=== PATIENT | male | born 1930 | race Caucasian/White ===

== ENCOUNTER 2017-04-05 18:40 | Emergency (ER) | payer OTHER ==
[~2017-04-05] VITALS: Ht 165.1 cm; Wt 71.5 kg
[2017-04-05 19:17] VITALS: Ht 165.1 cm; Wt 71.5 kg
[2017-04-05] MEDS ORDERED: SOD CHLORIDE 0.9% 500 ML IV STA (22:27)
[2017-04-05 23:36] LABS: ABNORMAL IP MESSAGE 1; HEMATOCRIT 39.3 % (42.0-52.0); HEMOGLOBIN 13.5 g/dl (14.0-18.0); MEAN CORPUSCULAR HEMOGLOBIN 28.9 pg (29.0-33.0); MEAN CORPUSCULAR HGB CONC 34.4 g/dl (32.0-37.0); MEAN CORPUSCULAR VOLUME 84.2 fl (82.0-101.0); MEAN PLATELET VOLUME 9.7 fl (7.4-10.4); PLATELET COUNT 261 10^3/UL (140-415); POSITIVE DIFF @See below; RED BLOOD COUNT 4.67 10^6/ul (4.70-6.10); RED CELL DISTRIBUTION WIDTH 14.5 % (11.5-14.5); WHITE BLOOD COUNT 27.8 10^3/ul (4.8-10.8)
--- NOTE | 2017-04-05 23:42 | RADRPT ---
PROCEDURE: CT abdomen and pelvis without contrast. CLINICAL INDICATION: Abdominal pain TECHNIQUE: CT scan of the abdomen and pelvis without contrast was performed on a multislice CT [facility] utilizing axial imaging from the lung bases through the pubis symphysis. The patient was scann ed without intravenous contrast. Sagittal and coronal reformatted images were made. The CTDIvol is 11.62 mGy and the DLP is 632.52 mGycm. One of the following 3 dose reduction techniques were used during this CT examination: automated exp osure control; adjustment of the mA and /or kV according to patient size; or use of iterative recons truction technique. COMPARISON: None available FINDINGS: The lung bases are remarkable for bibasilar discoid atelectasis. Mild cardiomegaly is present. Mil d vascular calcifications are present of the thoracic aorta and the coronary arteries. Minimal 4 mm pericardial thickening or effusion is present . The visualized liver is diffusely fatty infiltrated. The spleen, pancreas, gallbladder, and bilater al adrenal glands are normal. The right kidney is absent. The left kidney demonstrates a large lef t mid pole renal cortical cysts measuring 3.7 cm AP by 4.2 cm in transverse dimensions. The visualized aorta demonstrates vascular calcifications without aneurysmal dilatation. The visualized bowel is nonobstructive. An abundance of stool is noted and correlate with constipat ion. No evidence for diverticulosis, diverticulitis or appendicitis is present. The visualized pelvis demonstrates an incompletely distended urinary bladder. The prostate gland is normal in size with mild prostatic calcifications. Bilateral fatty inguinal hernias are noted with out evidence for bowel herniation. The right measures 2.3 cm and the left measures 2.5 cm. No pelvic mass, lymphadenopathy, or free fluid is seen. There is no evidence of free air. No aneur ysmal dilatation of the aorta is evident. The surrounding osseous structures are remarkable for generalized osteopenia. Degenerative changes are noted of the bilateral sacroiliac joints and degenerative spondylosis is present of the spine. Severe vacuum disk phenomenon is noted at the L3-4 through L5-S1 levels and the T11-12 levels . IMPRESSION: 1. No evidence for acute intra-abdominal or pelvic pathology. 2. Bibasilar discoid atelectasis 3. Mild cardiomegaly , mild pericardial effusion and pericardial thickening and atherosclerotic vas cular disease 4. Left mid pole renal cortical cyst 3.7 cm AP per 4.2 cm transverse dimension 5. Absent right kidney 6. Abundance of stool and correlate with constipation. 7. Bilateral fatty inguinal hernias 8. Degenerative changes of the imaged spine and bilateral sacroiliac joints. RPTAT: H D C .Suha Lang MD, Date Time Electronically viewed and signed by .Suha Lang MD, on 04/05/2017 23:41 .C/
[2017-04-05 23:53] LABS: ALBUMIN 4.3 g/dl (3.3-4.9); ALBUMIN/GLOBULIN RATIO 1.19; BILIRUBIN,INDIRECT 0.4 mg/dl (0-1.1); BILIRUBIN,TOTAL 0.4 mg/dl (0.2-1.3); CALCIUM 9.9 mg/dl (8.4-10.2); CREATININE 1.31 mg/dl (0.61-1.24); POTASSIUM 4.5 mmol/L (3.5-5.1); TOTAL PROTEIN 7.9 g/dl (6.1-8.1)
[2017-04-06 00:07] LABS: LYMPHOCYTES # 1.7 10^3/ul (0.8-2.9); MONOCYTE # 2.2 10^3/ul (0.3-0.9); MONOCYTES % (M) 8 % (0-11)
[2017-04-06] MEDS ORDERED: LEVO88TA3 PO (01:27)
[2017-04-06] MEDS ORDERED: IBUP-1542 PO (01:27)
[2017-04-06] MEDS ORDERED: LEVO500T10 PO (01:27)
[2017-04-06] MEDS ORDERED: CHOL100062 PO (01:27)
[2017-04-06] MEDS ORDERED: ATEN-51 PO (01:27)
[2017-04-06] MEDS ORDERED: CEPH500C PO (01:27)
[2017-04-06] MEDS ORDERED: MULT-105 PO (01:27)
[2017-04-06] MEDS ORDERED: VITA400C15 PO (01:27)
[2017-04-06] MEDS ORDERED: TRAM-40 PO (01:27)
[2017-04-06] MEDS ORDERED: LOSA100T7 PO (01:27)
[2017-04-06 01:29] VITALS: RESP 18
[2017-04-06] MEDS ORDERED: CEFEPIME 2GM/50 ML (PMX) 50 ML IVPB STA (02:16)
[2017-04-06] MEDS ORDERED: SODIUM CHLORIDE 0.9% 1L BAG IV* STA (02:16)
[2017-04-06] MEDS ORDERED: VANCOMYCIN 1 GM (PMX) 250 ML IVPB ONE (02:30)
[2017-04-06 03:00] LABS: ADD UMIC YES; UR ASCORBIC ACID NEGATIVE (NEGATIVE); UR BILIRUBIN (Dip) NEGATIVE (NEGATIVE); UR BLOOD (Dip) 2+ mg/dL (NEGATIVE); UR CLARITY CLEAR (CLEAR); UR COLOR YELLOW (YELLOW); UR GLUCOSE (Dip) NEGATIVE (NEGATIVE); UR KETONES (Dip) NEGATIVE (NEGATIVE); UR LEUKOCYTE ESTERASE (Dip) NEGATIVE Leu/ul (NEGATIVE); UR NITRITE (Dip) NEGATIVE (NEGATIVE); UR RBC 3 /HPF (0-5); UR SPECIFIC GRAVITY (Dip) 1.012 (1.003-1.030); UR TOTAL PROTEIN (Dip) NEGATIVE (NEGATIVE); UR UROBILINOGEN (Dip) NEGATIVE (NEGATIVE)
[2017-04-06] MEDS ORDERED: hydrALAzine 20 MG INJ IV ONE (04:00)
--- NOTE | 2017-04-06 04:48 | RADRPT ---
PROCEDURE: CHEST - 1 VIEW CLINICAL INDICATION: 86-year-old male with chest pain. TECHNIQUE: A single frontal AP semi-erect portable view of the chest was performed. The images we re reviewed on a PACS workstation. COMPARISON: CT abdomen/pelvis March 28, 2017. FINDINGS: The cardiomediastinal silhouette is mildly enlarged. There is minimal bibasilar subsegmental atelec tasis. There is no evidence for an infiltrate. There is no evidence for congestive heart failure. T here is no evidence for pneumothorax. The osseous structures are intact. IMPRESSION: 1. Mild cardiomegaly. 2. Minimal bibasilar subsegmental atelectasis. .Juan C Feliz MD, Date Time Electronically viewed and signed by .Juan C Feliz MD, on 04/06/2017 04:48 .M/
[2017-04-06 06:06] VITALS: BP 145/87; PULSE 93
--- NOTE | 2017-05-30 23:03 | ERD ---
ER Documentation Chief Complaint Chief Complaint GENERALIZED WEAKNESS, FOUND OUTSIDE HOME FOR UNK LENGTH OF TIME. HPI 86-year-old male generalized weakness found to discomfort on the length of time. Patient himself is unable to relate any relate any relevant history but is alert. Patient not oriented. ROS All systems reviewed and are negative except as per history of present illness. Medications Home Meds Reported Medications Multivitamin with Minerals (Multivitamins with Minerals) 1 Each Tablet, 1 EACH PO, TAB 04/06/17 Vitamin E* (Vitamin E*) 400 Unit Capsule, 400 UNIT PO DAILY, CAP 04/06/17 Cholecalciferol* (Vitamin D3*) 1,000 Unit Tablet, 1000 UNIT PO DAILY, TAB 04/06/17 Levothyroxine Sodium* (Levothyroxine Sodium*) 88 Mcg Tablet, 88 MCG PO BEFORE BREAKFAST, #30 TAB TK 1 TABLET BY MOUTH DAILY 30 MINUTES BEFORE BREAKFAST 04/06/17 Losartan Potassium* (Losartan Potassium*) 100 Mg Tablet, 100 MG PO DAILY, TAB 04/06/17 Atenolol* (Atenolol*) 25 Mg Tablet, 25 MG PO DAILY, #30 TAB 04/06/17 Ibuprofen* (Ibuprofen*) 600 Mg Tablet, 600 MG PO Q8 for 5 Days, TAB TK 1 TABLET BY MOUTHEVERY 8HOURS WITH FOODFOR 5 DAYS 04/06/17 Tramadol Hcl* (Ultram*) 50 Mg Tablet, 50 MG PO Q6H Y for PAIN, TAB TK ONE-HALF TABLET TO 1 TABLET BY MOUTH EVERY 4 TO 6 HOURS NEEDED, DO NOT EXCEED 8 TABLETS IN 24 HRS. 04/06/17 Cephalexin* (Cephalexin*) 500 Mg Capsule, 500 MG PO TID for 7 Days, #28 CAP 04/06/17 Levofloxacin* (Levofloxacin*) 500 Mg Tablet, 500 MG PO DAILY, TAB 04/06/17 Allergies Allergies: Coded Allergies: No Known Allergy (Unverified , 04/06/17) PMhx/Soc History of Surgery: Yes Anesthesia Reaction: No Hx Neurological Disorder: No Hx Respiratory Disorders: No Hx Cardiac Disorders: Yes (htn) Hx Psychiatric Problems: No Hx Miscellaneous Medical Probl: Yes (hypothyroidism) Hx Alcohol Use: No Hx Substance Use: No Hx Tobacco Use: No Smoking Status: Never smoker Physical Exam Physical Exam Const: [] Head: Atraumatic Eyes: Normal Conjunctiva ENT: Normal External Ears, Nose and Mouth. Neck: Full range of motion..~ No meningismus. Resp: Clear to auscultation bilaterally Cardio: Regular rate and rhythm, no murmurs Abd: Soft, non tender, non distended. Normal bowel sounds Skin: No petechiae or rashes Back: No midline or flank tenderness Ext: No cyanosis, or edema Neur: Awake and alert Psych: Normal Mood and Affect Results 24 hrs Laboratory Tests Test 04/05/17 23:10 04/06/17 02:20 04/06/17 05:48 White Blood Count 27.810^3/ul Red Blood Count 4.6710^6/ul Hemoglobin 13.5g/dl Hematocrit 39.3% Mean Corpuscular Volume 84.2fl Mean Corpuscular Hemoglobin 28.9pg Mean Corpuscular Hemoglobin Concent 34.4g/dl Red Cell Distribution Width 14.5% Platelet Count 98299^3/UL Mean Platelet Volume 9.7fl Segmented Neutrophils % (Manual) 79% Band Neutrophils % (Manual) 7% Lymphocytes % (Manual) 6% Monocytes % (Manual) 8% Nucleated Red Blood Cells % 0.0/100WBC Neutrophils # (Manual) 22.510^3/ul Band Neutrophils # 1.910^3/ul Absolute Lymphocytes (Manual) 1.610^3/ul Lymphocytes # 1.710^3/ul Monocytes # 2.210^3/ul Absolute Monocytes (Manual) 2.210^3/ul Sodium Level 136mmol/L Potassium Level 4.5mmol/L Chloride Level 92mmol/L Carbon Dioxide Level 26mmol/L Anion Gap 23 Blood Urea Nitrogen 25mg/dl Creatinine 1.31mg/dl Glucose Level 125mg/dl Calcium Level 9.9mg/dl Total Bilirubin 0.4mg/dl Direct Bilirubin 0.00mg/dl Indirect Bilirubin 0.4mg/dl Aspartate Amino Transf (AST/SGOT) 26IU/L Alanine Aminotransferase (ALT/SGPT) 33IU/L Alkaline Phosphatase 105IU/L Total Protein 7.9g/dl Albumin 4.3g/dl Globulin 3.60g/dl Albumin/Globulin Ratio 1.19 Lipase 23U/L Urine Color YELLOW Urine Clarity CLEAR Urine pH 7.0 Urine Specific [place] 1.012 Urine Ketones NEGATIVEmg/dL Urine Nitrite NEGATIVEmg/dL Urine Bilirubin NEGATIVEmg/dL Urine Urobilinogen NEGATIVEmg/dL Urine Leukocyte Esterase NEGATIVELeu/ul Urine Microscopic RBC 3/HPF Urine Microscopic WBC 1/HPF Urine Hemoglobin 2+mg/dL Urine Glucose NEGATIVEmg/dL Urine Total Protein NEGATIVEmg/dl Lactic Acid Level 1.7mmol/L 1.5mmol/L Troponin I 0.153ng/ml Current Medications Medications (Trade) Dose Ordered Sig/Jos Route PRN Reason Start Time Stop Time Status Last Admin Dose Admin Sodium Chloride (NS) 500 ml @ 500 mls/hr Q1H STAT IV 04/05/17 22:27 04/05/17 23:26 DC 04/05/17 23:26 Sodium Chloride 2220 ml 2,220 ml BOLUS OVER 2 HOURS STAT IV* 04/06/17 02:16 04/06/17 02:22 DC 04/06/17 02:42 Cefepime HCl 50 ml @ 100 mls/hr ONCE STAT IVPB 04/06/17 02:16 04/06/17 02:45 DC 04/06/17 02:42 Vancomycin HCl (Vancocin) 250 ml @ 125 mls/hr ONCE ONCE IVPB 04/06/17 02:30 04/06/17 04:29 DC 04/06/17 03:41 Hydralazine HCl (Apresoline) 10 mg ONCE ONCE IV 04/06/17 04:00 04/06/17 04:01 DC 04/06/17 03:39 Procedures/MDM EKG: Rate/Rhythm: [Normal Sinus Rhythm] QRS, ST, T-waves: [No changes consistent w/ acute ischemia] Impression: [No evidence of ischemia or arrhythmia] Chest X-ray 1V Interpreted by me: Soft Tissue: No acute abnormalities Bones: No acute abnormalities Mediastinum/Cardiac Silhouette/Lungs: [No acute abnormalities] Patient's symptoms are concerning for cardiac cause will require inpatient workup and continuous monitoring. Further w/u for ischemia, arrhythmia, PE or dissection will be deferred to the inpatient team. Accepting Care Team: Current data and ongoing care discussed. Time: Time of admission Primary Provider: Patient to be transferred to [place] Consulting: [[employer]OXOX[employer]] Outstanding Data: none Departure Diagnosis: Primary Impression: Acute weakness Additional Impression: NSTEMI (non-ST elevated myocardial infarction) Condition: Serious DERRICK RIOS May 30, 2017 23:03
== END 2017-04-06 07:52 ==
LOC: E/R 18:40
DX: I21.4 Non-ST elevation (NSTEMI) myocardial infarction (principal); I10 Essential (primary) hypertension; E03.9 Hypothyroidism, unspecified; R40.2142 Coma scale, eyes open, spontaneous, at arrival to emergency department; R40.2252 Coma scale, best verbal response, oriented, at arrival to emergency department; R40.2362 Coma scale, best motor response, obeys commands, at arrival to emergency department
CPT/HCPCS: 36415; 71010; 74176; 80053; 81001; 83605; 83690; 84484; 85025; 87040; 87086; 93005; 96374; 96375; 99285; J0360; J0692; J3370; J7030; J7040

== ENCOUNTER 2018-05-23 10:20 | Emergency (ER) | END 2018-05-23 14:40 | disposition home or self-care (01) ==

== ENCOUNTER 2018-09-06 16:07 | Emergency (ER) | payer OTHER ==
[~2018-09-06] VITALS: Ht 170.2 cm; Wt 80.0 kg
[~2018-09-06 16:07] MED LIST: ATEN-51 PO; CHOL100062 PO; IBUP-1542 PO; LEVO88TA3 PO; LOSA100T15 PO; MULT-105 PO; TRAM50TA PO; VITA400C15 PO
[2018-09-06 16:10] VITALS: Ht 170.2 cm; Wt 80.0 kg
[2018-09-06] MEDS ORDERED: SOD CHLORIDE 0.9% 500 ML IV STA (16:16)
[2018-09-06] MEDS ORDERED: hydrALAzine 20 MG INJ IV ONE (16:30)
--- NOTE | 2018-09-06 16:45 | ERD ---
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 ASA 324MG GIVEN BY EMS HPI 87-year-old man brought in by EMS for complaints of intermittent sharp nonexertional nonradiating chest pain beginning earlier today. He has had similar episodes of pain in the past and was given aspirin by EMS prior to transport. He is pain-free in the ER and denies shortness of breath, no cough, no fevers or chills, no headache or blurry vision. ROS All systems reviewed and are negative except as per history of present illness. Medications Home Meds Reported Medications Multivitamin with Minerals (Multivitamins with Minerals) 1 Each Tablet, 1 EACH P O, TAB 04/06/17 Vitamin E* (Vitamin E*) 400 Unit Capsule, 400 UNIT PO DAILY, CAP 04/06/17 Cholecalciferol* (Vitamin D3*) 1,000 Unit Tablet, 1000 UNIT PO DAILY, TAB 04/06/17 Levothyroxine Sodium* (Levothyroxine Sodium*) 88 Mcg Tablet, 88 MCG PO BEFORE BREAKFAST, #30 TAB TK 1 TABLET BY MOUTH DAILY 30 MINUTES BEFORE BREAKFAST 04/06/17 Losartan Potassium* (Losartan Potassium*) 100 Mg Tablet, 100 MG PO DAILY, TAB 04/06/17 Atenolol* (Atenolol*) 25 Mg Tablet, 25 MG PO DAILY, #30 TAB 04/06/17 Ibuprofen* (Ibuprofen*) 600 Mg Tablet, 600 MG PO Q8 for 5 Days, TAB TK 1 TABLET BY MOUTHEVERY 8HOURS WITH FOODFOR 5 DAYS 04/06/17 Tramadol Hcl* (Ultram*) 50 Mg Tablet, 50 MG PO Q6H PRN for PAIN, TAB TK ONE-HALF TABLET TO 1 TABLET BY MOUTH EVERY 4 TO 6 HOURS NEEDED, DO NOT EXCEED 8 TABLETS IN 24 HRS. 04/06/17 Allergies Allergies: Coded Allergies: No Known Allergy (Unverified , 04/06/17) PMhx/Soc Hypothyroidism, hypertension, CAD History of Surgery: Yes Anesthesia Reaction: No Hx Neurological Disorder: No Hx Respiratory Disorders: No Hx Cardiac Disorders: Yes (htn) Hx Psychiatric Problems: No Hx Miscellaneous Medical Probl: Yes (hypothyroidism) Hx Alcohol Use: No Hx Substance Use: No Hx Tobacco Use: No Smoking Status: Never smoker FmHx Family History: No diabetes Physical Exam Vitals Vital Signs Date Temp Pulse Resp B/P (MAP) Pulse Ox O2 O2 Flow FiO2 Time Delivery Rate 09/06/18 98.0 78 20 128/88 98 Room Air 17:43 (101) 09/06/18 97.9 67 16 191/103 98 16:10 (132) Physical Exam Const: No acute distress, afebrile Head: Atraumatic Eyes: Normal Conjunctiva ENT: Normal External Ears, Nose and Mouth. Neck: Full range of motion. No meningismus. Resp: Clear to auscultation bilaterally Cardio: Regular rate and rhythm, no murmurs Abd: Soft, non tender, non distended. Normal bowel sounds Skin: No petechiae or rashes Back: No midline or flank tenderness Ext: No cyanosis, or edema Neur: Awake and alert x3, no focal deficits or facial asymmetry Psych: Normal Mood and Affect Result Diagram: 09/06/18 1644 09/06/18 1644 Results 24 hrs Laboratory Tests Test 09/06/18 16:44 White Blood Count 12.9 10^3/ul Red Blood Count 5.14 10^6/ul Hemoglobin 14.3 g/dl Hematocrit 45.3 % Mean Corpuscular Volume 88.1 fl Mean Corpuscular Hemoglobin 27.8 pg Mean Corpuscular Hemoglobin Concent 31.6 g/dl Red Cell Distribution Width 14.9 % Platelet Count 279 10^3/UL Mean Platelet Volume 10.1 fl Immature Granulocytes % 0.500 % Neutrophils % 48.9 % Lymphocytes % 36.2 % Monocytes % 9.9 % Eosinophils % 3.9 % Basophils % 0.6 % Nucleated Red Blood Cells % 0.0 /100WBC Immature Granulocytes # 0.060 10^3/ul Neutrophils # 6.3 10^3/ul Lymphocytes # 4.7 10^3/ul Monocytes # 1.3 10^3/ul Eosinophils # 0.5 10^3/ul Basophils # 0.1 10^3/ul Nucleated Red Blood Cells # 0.0 10^3/ul Sodium Level 140 mmol/L Potassium Level 4.3 mmol/L Chloride Level 102 mmol/L Carbon Dioxide Level 25 mmol/L Anion Gap 13 Blood Urea Nitrogen 25 mg/dl Creatinine 1.13 mg/dl Est Glomerular Filtrat Rate mL/min mL/min Glucose Level 94 mg/dl Calcium Level 9.8 mg/dl Total Bilirubin 0.1 mg/dl Direct Bilirubin 0.00 mg/dl Indirect Bilirubin 0.1 mg/dl Aspartate Amino Transf (AST/SGOT) 25 IU/L Alanine Aminotransferase (ALT/SGPT) 17 IU/L Alkaline Phosphatase 103 IU/L Troponin I < 0.012 ng/ml Total Protein 7.7 g/dl Albumin 4.4 g/dl Globulin 3.30 g/dl Albumin/Globulin Ratio 1.33 Lipase 72 U/L Current Medications Medications Dose Sig/Jos Start Time Status Last (Trade) Ordered Route PRN Stop Time Admin Dose Reason Admin Sodium 500 ml @ Q1H STAT 09/06/18 DC 09/06/18 Chloride 500 mls/hr IV 16:16 16:43 09/06/18 17:15 Hydralazine 10 mg ONCE ONCE 09/06/18 DC 09/06/18 HCl IV 16:30 16:45 (Apresoline) 09/06/18 16:31 Procedures/MDM IV line was established 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 Patient was afebrile One AP view of the chest performed, read by me reveals no acute infiltrates, normal mediastinum, sharp costophrenic and cardiac borders, no air under the diaphragm. Otherwise unremarkable chest x-ray. EKG performed, read by me revealed a normal sinus rhythm at 67 bpm, normal axis, narrow QRS complex, no concerning ST elevations or depressions noted I administered 500 cc normal saline IV and hydralazine 10 mg IV x1 for hypertension CBC and electrolytes are normal, liver function tests were normal, troponin was negative Differential diagnoses considered, included but not limited to acute coronary syndrome, pulmonary embolism, aortic dissection, abdominal aortic aneurysm, sepsis, stroke, meningitis, encephalitis, pneumonia, appendicitis, cholecystitis, bowel obstruction, pyelonephritis, nephrolithiasis, cystitis, as well as metabolic, hematologic, and electrolyte abnormalities. As well as abscess, cellulitis, fractures, and dislocations. Patient feels much better at this time, and vital signs are normal, symptoms have improved. I did give strict instructions to return to the ED if symptoms continue or worsen, patient will otherwise follow-up with primary care physician. Patient understood instructions and agreed to plan. Disclaimer: Inadvertent spelling and grammatical errors are likely due to EHR/dictation software use and do not reflect on the overall quality of patient care. Also, please note that the electronic time recorded on this note does not necessarily reflect the actual time of the patient encounter. Departure Diagnosis: Primary Impression: Chest pain Chest pain type: unspecified Qualified Codes: R07.9 - Chest pain, unspecified Additional Impression: Hypertension Hypertension type: essential hypertension Qualified Codes: I10 - Essential (primary) hypertension Condition: Good HAYDEE ARNETT MD Sep 06, 2018 16:45
[2018-09-06 17:43] VITALS: BP 128/88; PULSE 78; RESP 20
[2018-09-07] MEDS ORDERED: CHOL100062 PO (14:27)
[2018-09-07] MEDS ORDERED: ATEN-51 PO (14:27)
[2018-09-07] MEDS ORDERED: LEVO88TA42 PO (14:28)
[2018-09-07] MEDS ORDERED: LOSA100T15 PO (14:29)
[2018-09-07] MEDS ORDERED: ACET500C5 PO (16:58)
== END 2018-09-06 17:46 | disposition home or self-care (01) ==
LOC: E/R 16:07
DX: R07.9 Chest pain, unspecified (principal); I10 Essential (primary) hypertension; E03.9 Hypothyroidism, unspecified; I25.10 Atherosclerotic heart disease of native coronary artery without angina pectoris
CPT/HCPCS: 36415; 71045; 80053; 83690; 84484; 85025; 93005; 96374; 99285; J0360; J7040